=== PATIENT | female | born 1975 | race Caucasian/White ===

== ENCOUNTER 2023-08-31 20:00 | Emergency (ER) | payer OTHER, SELFPAY ==
[2023-08-31 20:15] VITALS: BP 156/84; O2SAT 99
[2023-08-31 20:19] VITALS: BP 150/92; PULSE 75; RESP 18; TEMP 36.6; O2SAT 98
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
--- OUTSIDE RECORDS SUMMARY | 2023-08-31 20:42 | XMS RPT_ITS | CCD ---
Author Name Unknown Address [address] [place] [address] Organization [facility] Care Team Providers Care Gas Plant Technician Name Role Phone Ousmane Talbot MD Unavailable Ousmane Talbot MD Unavailable Rashida OSWALDN, Kelli Unavailable Nagi ANNE, Renata Stone Unavailable [phone] Robb Dowd MD Unavailable Wilian MANAGER INTERNSHIP, Bushra Ellison Unavailable Unavailable John MANAGER INTERNSHIP, Rosa Isela Unavailable Unavailable Vess MANAGER INTERNSHIP, Neronda L Unavailable Unavailable Unavailable Unavailable Aubrie Chaudhry MA Unavailable Unavailable Unavailable Unavailable Medications Current Medications Medication Drug Class(es) Dates Sig (Normalized) Sig (Original) hydrOXYzine hydrochloride 10 mg oral tablet (1 source) Antihistamine Start: 08-30-2023 hydrOXYzine HCL 10 mg tablet ; 1 (one) tablet three times daily, as needed for 0 days Quantity: 30 {Tablet} Refills: 0 Ordered: 30-Aug-2023 OMID Lazar Start: 30-Aug-2023 Comments: Medication taken as needed. Completed/Discontinued Medications Medication Drug Class(es) Dates Sig (Normalized) Sig (Original) amoxicillin 875 mg / clavulanate 125 mg oral tablet (2 sources) Penicillin-class Antibacterial Start: 09-16-2013 End: 10-10-2017 take 1 tablet by mouth twice daily Amoxicillin-Pot Clavulanate 875-125 MG Oral Tablet ; 1 Tablet two times daily for 0 days Quantity: 20 {Tablet} Refills: 0 Ordered: 10-Oct-2017 RAMBO Webber Start: 16-Sep-2013 End: 10-Oct-2017 Status: Inactive ciprofloxacin 500 mg oral tablet (2 sources) Quinolone Antimicrobial Start: 11-14-2012 End: 11-28-2012 take 1 tablet by mouth twice daily CIPROFLOXACIN HCL, 500MG (Oral Tablet) ; 1 Tablet two times daily for 14 days Quantity: 28 {Tablet} Refills: 0 Ordered: 14-Nov-2012 RAMBO Field Start: 14-Nov-2012 End: 28-Nov-2012 Status: Inactive Problems Active Problems Problem Classification Problem Date Documented Da te Episodic/Chronic Abdominal hernia (2 sources) Umbilical hernia; Translations: [Umbilical hernia without obstruction or gangrene] 11-09-2011 Episodic Abdominal pain (2 sources) Acute abdominal pain; Translations: [Unspecified abdominal pain] 10-10-2017 Episodic Allergic reactions (5 sources) Eczema; Translations: [Dermatitis, unspecified] 09-07-2020 Episodic Anxiety disorders (5 sources) Anxiety; Translations: [Anxiety disorder, unspecified] 09-07-2020 Chronic Esophageal disorders (6 sources) Gastroesophageal reflux disease; Translations: [Gastro-esophageal reflux disease without esophagitis] 08-30-2023 Chronic Genitourinary symptoms and ill-defined conditions (2 sources) Urinary symptoms ; Translations: [Unspecified symptoms and signs involving the genitourinary system] 04-18-2020 Episodic Other ear and sense organ disorders (2 sources) Pain of ear structure; Translations: [Otalgia, unspecified ear] 11-10-2012 Episodic Other female genital disorders (2 sources) Vaginal discharge; Translations: [Other specified noninflammatory disorders of vagina] 04-18-2020 Episodic Other nutritional; endocrine; and metabolic disorders (4 sources) Body mass index 30+ - obesity; Translations: [Body mass index (BMI) 30.0-30.9, adult] 04-18-2020 Chronic Other skin disorders (4 sources) Mass of neck; Translations: [Localized swelling, mass and lump, neck] 11-10-2012 Episodic Other upper respiratory disease (2 sources) Congestion of nasal sinus; Translations: [Nasal congestion] 09-16-2013 Episodic Otitis media and related conditions (4 sources) Mastoiditis; Translations: [Unspecified mastoiditis, unspecified ear] 11-14-2012 Episodic Unclassified (2 sources) deliveries 10-24-2012 Past or Other Problems Problem Classification Problem Date Documented Da te Episodic/Chronic Unclassified (1 source) Follow up for multiple chronic conditions - The patient is here for follow-up of anxiety and GERD. The patient has stopped the recommended medications (Pt is not on any medication). The patient has an active lifestyle but no regular exercise program. The patient's dietary compliance is fairly good usually adhering to recommendations. The patient states that weight has increased (up 22 lbs). Note for Multiple chronic conditions follow-up : Pt said if she eats beef it makes her GERD worse. pt wants to have a topical cream for her dry skin.Pt wants to be on medication for her anxiety that does not have much side effects. 08-30-2023 Unclassified (1 source) Rash - The onset of the rash has been gradual and has been occurring in a persistent pattern for 3 months. The rash is characterized as red. The rash was first seen on the upper extremity (both hands). 09-07-2020 Unclassified (1 source) [ADDITIONAL REASON] Anxiety - The onset of the anxiety has been gradual and has been occurring in a persistent pattern for 6 months. Note for Anxiety : -Seen 03/2020 for chest pain/GERD. She is improved some but experiencing tachycardia at night. July was stressful for her and she cried a lot. 09-07-2020 Unclassified (2 sources) Chest pain - The onset of the pain has been gradual and has been occurring in a recurrent pattern for 8 months (for at least 8 months, but says its probably been logner but unsure how long really). The pain is described as a moderate burning (sometimes burning but not all the time she said its hard to explain). The pain is described as being located in the epigastrium and does not radiate. The pain is precipitated by eating. The symptoms are aggravated by food (pt notices it the most after eating/ drinkingalso worse when sitting or lying down). The symptoms have no relieving factors. The symptoms have been associated with abdominal pain (kind of aching - 2 weeks after here period at times she does) and cough (dry cough for months too very slight she says), but have not been associated with breast pain, dizziness, dysphagia, dyspnea, fever, headache, nausea, palpitations or vomiting. There have been no previous evaluations. Note for Chest pain : she called in back in august and talked to kelli about it - kelli had her take OTC omeprazole. Patient states that she took the omeprazole for a short time and that it seemed to be helping when she was taking it. Patient states that she stopped taking the medication because she wasn't sure if she was feeling better because of the medication or if feeling better was all in my head . Patient describes more of a bubbling sensation in her chest rather than pain. Patient states that she has been told that she has a hiatal hernia. Patient states that she also has a history of acid reflux. Patient reports that she drinks 4-5 cups of coffee some days. 04-18-2020 Unclassified (2 sources) Abdominal pain - The onset of the abdominal pain has been acute and has been occurring in a persistent pattern for 2 weeks. The course has been recurrent. The pain is described as a moderate burning and dull ache. The pain is located in the right lower quadrant and radiates to the back and right flank. The symptoms have no aggravating factors but have no relieving factors. The symptoms have been associated with diarrhea and nausea, while the symptoms have not been associated with fever. 10-10-2017 Unclassified (2 sources) swollen lymph node - States approximately 4-5 weeks ago went to [facility] for ear pain. Was given Amoxicillin. She then went to [place] and left the pills at home (she thinks she took them nearly a week). On the way to [place] she noticed a painless lump in her neck on the right side. She has continued to notice it since but gave it time to go away and it has not so she is here to have it examined. She decided to resume her left over Amoxicillin a few days ago because her right ear fired up again. She has a few left to take. She is concerned mostly about the lump and possible swelling in the side of her neck. 10-24-2012 Unclassified (2 sources) Evaluate Lump - Pt here today because she has noticed that whenever she does sit-ups or tightens abdominal muscles she notices a lump. Lump is soft and movable and located between umbilicus and pubic area. Not painful. SHe noticed this a couple months ago. reviewed by [facility] 11-09-2011 Unclassified (2 sources) Ear pain - The onset of the pain has been gradual and has been occurring in an intermittent pattern for 2 weeks. The course has been increasing. The pain is described as a moderate dull aching and pressure. The pain is described as being located in the inner ear. The pain is felt in the right ear. 11-20-2010 Unclassified (1 source) Follow up for multiple chronic conditions - The patient is here for follow-up of anxiety, GERD and other condition(s) (eczema). The patient has stopped the recommended medications (Pt is not on any medication - she was prescribed sertraline some time ago and stopped using it due to nausea). The patient has an active lifestyle but no regular exercise program. The patient's dietary compliance is fairly good usually adhering to recommendations. The patient states that there is no recent angina or dyspnea, there are no vision changes or weakness, weight has increased (up 22 lbs) and mood is unchanged (Patient reports continued symptoms of anxiety. She reports that she can handle her anxiety well most days, but has some moments where her anxiety becomes heightened. She is hesitant to start medication and would prefer to not take anything if she can.). Note for Multiple chronic conditions follow-up : Patient reports some increased symptoms of GERD. She does not take any antacid at this time.Patient is requesting a refill of the steroid cream she previously used for her eczema. She reports good control of her itching with use of this cream. 08-30-2023 Unclassified (1 source) Anxiety - The onset of the anxiety has been gradual and has been occurring in a persistent pattern for 6 months. Note for Anxiety : -Seen 03/2020 for chest pain/GERD. She is improved some but experiencing tachycardia at night. July was stressful for her and she cried a lot. 09-07-2020 Unclassified (1 source) [ADDITIONAL REASON] Rash - The onset of the rash has been gradual and has been occurring in a persistent pattern for 3 months. The rash is characterized as red. The rash was first seen on the upper extremity (both hands). 09-07-2020 Results Test Name Value Interpretation Reference Range Facil ity Vital Signs Date Time Vital Sign Value Performing Clinician Faci lity 08-30-2023 10:06-0500 Body height 153.67 cm Aubrie Chaudhry MA [facility] 08-30-2023 10:06-0500 Body mass index (BMI) [Ratio] 33.42 kg/m2 Aubrie Chaudhry MA [employer]. 08-30-2023 10:06050 Body surface area Derived from formula 1.77 m2 Aubrie Chaudhry MA [employer]. 08-30-2023 10:06050 Body weight 78.93 kg Aubrie Chaudhry MA [employer]. 08-30-2023 10:06-0500 Diastolic blood pressure 96 mm[Hg] Aubrie Chaudhry MA [employer] Encounters Encounter Date Encounter Type Care Provider Facility Start: 08-30-2023 End: 08-30-2023 Office outpatient visit 25 minutes Ousmane Talbot MD Work Phone: [facility] Start: 08-30-2023 Follow-up encounter Ousmane mckee MD Work Phone: [facility] Start: 09-07-2020 End: 09-07-2020 Patient encounter procedure Ousmane Talbot MD Work Phone: [facility] Start: 04-18-2020 End: 04-18-2020 Office outpatient visit 15 minutes Ousmane Talbot MD Work Phone: [facility] Start: 10-10-2017 End: 10-10-2017 Patient encounter procedure Ousmane Talbot MD Work Phone: [facility] Start: 09-16-2013 End: 09-16-2013 Orders Ousmane Talbot MD Work Phone: [facility] Start: 11-14-2012 End: 11-14-2012 Orders Ousmane Talbot MD Work Phone: [facility] [employer] Start: 11-10-2012 End: 11-10-2012 Orders Ousmane Talbot MD Work Phone: [facility] Start: 10-24-2012 End: 10-24-2012 Patient encounter procedure Ousmane Talbot MD Work Phone: [facility] Start: 11-09-2011 End: 11-09-2011 Patient encounter procedure Ousmane Talbot MD Work Phone: [facility] Start: 11-20-2010 End: 11-20-2010 Patient encounter procedure Ousmane Talbot MD Work Phone: [facility] Procedures Date Procedure Procedure Detail Performing Clinician Start: 10-10-2017 End: 10-10-2017 Body mass index documented Ousmane aguilera MD Work Phone: Start: 11-10-2012 End: 11-14-2012 Ct soft tissue neck w/contrast material Ousmane Talbot MD Work Phone: Start: 08-06-2008 End: 08-06-2008 Microscopic examination of cervical Papanicolaou smear Kelli Field LPN Work Phone: Social History Date Type Detail Facility Child(caitlin) Child(caitlin) [facility]; [facility]. Tobacco Use: Tobacco Use: ; Never smoker. [facility]. Female [facility] [employer]. Work Phone: Never smoked tobacco [facility]; [employer]. Work Phone: Summary Purpose Family History No Family History Records Found Advance Directives No Advanced Directives Records Found Additional Source Comments INFORMATION SOURCE (unrecogn ized section and content) FOR RECORDS PERTAINING TO PATIENTS WHO ARE OR HAVE BEEN ENROLLED IN A CHEMICAL DEPENDENCY/SUBSTANCEABUSE PROGRAM, SOME INFORMATION MAY BE OMITTED. This clinical summary was aggregated from multiple sources. Caution should be exercised in using it in the provision of clinical care. This summary normalizes information from multiple sources, and as a consequence, information in this document may materially change the coding, format and clinical context of patient data. In addition, data may be omitted in some cases. CLINICAL DECISIONS SHOULD BE BASED ON THE PRIMARY CLINICAL RECORDS. [employer] provides no warranty or guarantee of the accuracy or completeness of information in this document.
--- NOTE | 2023-08-31 20:50 | RAD_ITS ---
INDICATION: Trauma, Pain EXAMINATION/TECHNIQUE: X-RAY - XR Chest 2 Views COMPARISON: None. FINDINGS: LINES/DEVICES: None. LUNGS: No consolidation, edema or effusion. No pneumothorax. Left upper lung granuloma trace. Trace left effusion suggested. MEDIASTINUM AND CARDIOVASCULAR STRUCTURES: Cardiac silhouette not enlarged. Central airways and mediastinal contour are unremarkable. BONES AND SOFT TISSUES: Unremarkable. RAD/Chest PA and Lateral IMPRESSION: No radiographic evidence of acute cardiopulmonary disease. Clear lungs. Trace left effusion suggested. Electronically Signed: Cali Tomas MD at 21:30 EST ,
--- NOTE | 2023-08-31 20:50 | RAD_ITS ---
INDICATION: Trauma EXAMINATION/TECHNIQUE: X-RAY - RIGHT XR Hand Min 3 Views 3 VIEWS COMPARISON: None. FINDINGS: Tiny corticated density adjacent to the first IP joint has a chronic appearance. There is some IP joint osteoarthrosis noted involving multiple digits suggesting osteoarthritis. No definitive acute fracture or dislocation. Mild carpal joint space narrowing is detected overall. No erosion. RAD/Hand Min 3 Views IMPRESSION: Degenerative change. No fracture detected. Electronically Signed: Cali Tomas MD at 21:22 EST ,
--- NOTE | 2023-08-31 21:10 | CT_ITS ---
INDICATION: Trauma EXAMINATION: CT CERVICAL SPINE - CT Spine Cervical W/O Contrast Injection TECHNIQUE: Helically acquired images were obtained of the cervical spine. 2D reformatted images were reviewed. A radiation dose optimization technique was used for this scan. IV Contrast dosage and agent: None. COMPARISON: None. FINDINGS: Reversal of normal cervical lordosis. This may reflect positioning or spasm. Slight retrolisthesis of C5 on C6. Mild discal narrowing at C4/C5 and mild to moderate narrowing C5/C6. Anterior osteophytosis C4-C7. Widely patent spinal canal. This patient does have some mild to moderate right-sided neural foraminal narrowing at C5/C6. No jumped facet. No spinous process fracture. No vertebral body fracture. Prevertebral soft tissues are within normal limits. C1/C2 relationship is normal. Incomplete posterior ring of C1, congenital. CT/Spine Cervical without Contras IMPRESSION: No acute fracture. Slight listhesis at C5-6, likely degenerative. Electronically Signed: Cali Tomas MD at 21:36 EST ,
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
--- NOTE | 2023-08-31 21:10 | CT_ITS ---
INDICATION: Trauma EXAMINATION: CT BRAIN - CT Head or Brain W/O Contrast Injection TECHNIQUE: Multiple axial images were obtained of the head without intravenous contrast. A radiation dose optimization technique was used for this scan. IV Contrast dosage and agent: None. COMPARISON: FINDINGS: BRAIN PARENCHYMA: No intra- or extra-axial hemorrhage. No evidence of acute infarct. No intracranial mass or mass effect. There is preservation of the sapp/white matter interface. Posterior fossa structures are unremarkable. CSF SPACES: Appropriate for age. No hydrocephalus. Basal cisterns are patent. CALVARIUM, SKULL BASE, PARANASAL SINUSES AND MASTOID AIR CELLS: Clear. No discrete lytic or blastic abnormalities. ORBITS: Both globes, extraocular muscles, optic nerves and retrobulbar fat appear unremarkable. Right frontal superficial soft tissue swelling without underlying bony fracture. CT/Brain/Head without Contrast IMPRESSION: No acute intracranial hemorrhage or fracture. Right frontal superficial soft tissue swelling/hematoma. Electronically Signed: Cali Tomas MD at 21:34 EST ,
[2023-08-31 21:29] LABS: Absolute Lymphocyte Count 0.93 X10^3/uL (0.83-4.51); Basophil# 0.04 X10^3/uL; Basophil% 0.4 % (0-1); Eosinophil# 0.07 X10^3/uL; Eosinophils% 0.6 % (0-5); Hemoglobin 10.9 g/dL (12.0-15.0); Lymphocyte # 0.93 X10^3/ul (0.83-4.51); Lymphocyte % 8.6 % (19-41); Mean Corpuscular Hgb 26.9 pg (27.0-32.0); Mean Corpuscular Volume 81.5 fL (81-99); Mean Platelet Vol. 9.3 fl (6.2-12.0); Monocyte# 0.75 X10^3/uL; Monocyte% 6.9 % (0-10); NRBC Flagged by Analyzer 0 % (0-5); Neutrophil # 9.01 X10^3/uL (2.7-7.7); Platelet Count 219 K/mm3 (150-450); RBC Distribution Width CV 14.2 % (11.6-14.6); RBC Distribution Width SD 42.1 fl (35.1-43.9); Red Blood Count 4.05 M/mm3 (4.2-5.4); White Blood Count 10.9 K/mm3 (4.4-11.0)
[2023-08-31 21:43] LABS: Anion Gap 4 (5-15); BUN 17 mg/dL (7-18); BUN/Creat Ratio 19.9 RATIO (10-20); Calcium,Total 8.5 mg/dL (8.5-10.1); Chloride 106 mmol/L (98-107); Creatinine, Serum 0.85 mg/dL (0.55-1.02); EST Glomerular Filtration Rate 75 mL/min (>60); Est Glom Filt Rate - Afr Amer 91 mL/min (>60); Glucose 135 mg/dL (74-106); Potassium 3.5 mmol/L (3.5-5.1); Sodium Level 134 mmol/L (136-145)
[2023-08-31 22:51] VITALS: BP 128/85; PULSE 100; RESP 20; TEMP 36.4; O2SAT 97
[2023-08-31] MEDS: Ondansetron 4 MG/2 ML Vial IV (22:54)
[2023-08-31] MEDS: morphine 8 MG/ML Syringe 6 MG IV (22:54)
== END 2023-08-31 23:14 | disposition home or self-care (01) ==
PROVIDERS: Emergency Provider Emergency Medicine; Visit Provider Emergency Medicine
DX: S22.42XA Multiple fractures of ribs, left side, initial encounter for closed fracture (principal); S00.83XA Contusion of other part of head, initial encounter; S60.410A Abrasion of right index finger, initial encounter; S60.412A Abrasion of right middle finger, initial encounter; S60.416A Abrasion of right little finger, initial encounter; V53.6XXA Passenger in pick-up truck or van injured in collision with car, pick-up truck or van in traffic accident, initial encounter
CPT/HCPCS: 70450; 71046; 71260; 72125; 73130; 74177; 80048; 85025; 96374; 96375; 99282; Q9967; A4216; J2405